=== PATIENT | female | born 2000 | race Caucasian/White ===

== ENCOUNTER 2024-04-17 08:30 | Outpatient (REF) | payer MEDICAID, SELFPAY ==
--- NOTE | ~2024-04-17 | US_ITS ---
EXAMINATION: US PELVIS CLINICAL INFORMATION: Pelvic pain LMP 3 weeks ago COMPARISON: None available. TECHNIQUE: Ultrasound of the pelvis is performed using both transabdominal and transvaginal transducers along with Doppler. Transvaginal imaging is performed due to inadequate visualization transabdominally. FINDINGS: Uterus: The uterus is anteverted and measures 8.0 x 2.4 x 3.2 cm. The double wall endometrial thickness is 0.3 mm. The uterus is smooth in contour and has normal myometrial echogenicity. No visible fibroid. Adnexa: Both ovaries are visualized. There is normal color flow to the adnexa. There is no ovarian torsion. There is small amount of pelvic fluid . Right ovary measures 2.7 x 1.9 x 1.7 cm. With a volume of 4.3 mL Left ovary measures 3.0 x 1.8 x 1.8 cm. With a volume of 5.0 mL US/US pelvic and transvaginal IMPRESSION: Small amount of pelvic fluid, possibly physiologic Electronically signed by: Janel Watson MD 04/17/2024 02:00 PM EDT
--- NOTE | ~2024-04-17 | US_ITS ---
EXAMINATION: US RETROPERITONEAL COMPLETE (RENAL) CLINICAL INFORMATION: Urethral syndrome. COMPARISON: None available. TECHNIQUE: Real-time imaging of the kidneys and bladder. FINDINGS: RIGHT KIDNEY: 9.6 x 5.0 x 5.1 cm (SAG x AP x TRV). The kidney is normal in size, contour, and echogenicity. Renal cortical thickness is normal. No calculi or focal parenchymal lesions. There is mild pelviectasis, without melvin hydronephrosis. LEFT KIDNEY: 9.2 x 5.0 x 5.0 cm (SAG x AP x TRV). The kidney is normal in size, contour, and echogenicity. Renal cortical thickness is normal. No calculi or focal parenchymal lesions. No hydronephrosis. BLADDER: Well distended and normal. Bilateral ureteral jets are demonstrated. Prevoid bladder volume is 448 mL. Postvoid bladder volume is 0 mL. US/US retroperitoneal comp IMPRESSION: Unremarkable examination. Electronically signed by: Jamey Chakraborty MD 04/17/2024 11:01 PM EDT RP
== END 2024-04-17 08:31 | disposition home or self-care (01) ==
LOC: HO.UMASIMG 08:30
PROVIDERS: Visit Provider Nurse Practitioner Women's Health
DX: N34.3 Urethral syndrome, unspecified (principal); R10.2 Pelvic and perineal pain
CPT/HCPCS: 76770; 76830; 76856